=== PATIENT | female | born 1980 | race Caucasian/White ===

== ENCOUNTER 2024-03-27 15:15 | Outpatient (REF) | payer MEDICARE, MEDICAID, SELFPAY ==
[2024-03-27 15:58] LABS: MANUAL DIFF FLAG NO
[2024-03-27 16:13] LABS: Basophils Percent Auto 0.6 % (0-2); Eosinophils Absolute Auto 0.1 X10*3/uL (0.0-0.4); Eosinophils Percent Auto 1.9 % (0-4); Hematocrit 33.6 % (37.0-47.0); Hemoglobin 10.6 g/dl (12.0-16.0); Imm Gran Abs Auto 0.02 X10*3/uL (0.00-0.03); Imm Gran Pct Auto 0.3 % (0.0-0.4); Lymphocytes Absolute Auto 1.8 X10*3/uL (1.2-4.9); Lymphocytes Percent Auto 25.2 % (20-40); Mean Corpuscular HGB Conc 31.5 g/dl (31.0-35.0); Mean Corpuscular Hemoglobin 25.1 pg (27.0-33.0); Mean Corpuscular Volume 79.6 fL (80.0-98.0); Mean Platelet Volume 11.2 fL (9.4-12.3); Monocytes Absolute Auto 0.4 X10*3/uL (0.1-1.2); Monocytes Percent Auto 6.3 % (2-11); Neutrophils Absolute Auto 4.6 x10*3/uL (2.0-8.3); Neutrophils Percent Auto 65.7 % (45-73); Platelet Count 245 X10*3/uL (160-400); Red Blood Count 4.22 X10*6/uL (4.20-5.50)
[2024-03-27 16:46] LABS: Alanine Aminotransferase 17 U/L (0-31); Albumin Level 3.9 g/dL (3.5-5.0); Alkaline Phosphatase 58 U/L (39-117); Anion Gap 11 (12-20); Aspartate Amino Transferase 18 U/L (5-31); Bilirubin Total 0.2 mg/dL (0.0-1.0); Blood Urea Nitrogen 11 mg/dL (9-16); Calcium 9.5 mg/dL (8.4-10.2); Carbon Dioxide 22 mmol/L (22-29); Chloride 110 mmol/L (96-108); Estimated Glomerular Filt Rate > 60; Glucose Random 83 mg/dL (60-115); Potassium 4.4 mmol/L (3.3-5.1); Sodium 139 mmol/L (135-145); Total Protein 7.1 g/dL (6.5-8.0)
[2024-03-27 16:55] LABS: Ferritin 9 ng/mL (10-250); TSH reflex Free T4 0.99 uIU/mL (0.32-4.0)
[2024-03-30 05:09] LABS: TS Negative Control Passed; TS Panel A 1; TS Panel B 0; TS Positive Control Passed; TSpotTB Negative (Negative)
== END 2024-03-27 15:16 | disposition home or self-care (01) ==
LOC: HO.HHCL 15:15
PROVIDERS: Visit Provider Internal Medicine
DX: N93.8 Other specified abnormal uterine and vaginal bleeding (principal); R63.4 Abnormal weight loss; E46 Unspecified protein-calorie malnutrition; R56.9 Unspecified convulsions
CPT/HCPCS: 36415; 80053; 82728; 84134; 84443; 85025; 86481

== ENCOUNTER 2024-12-29 09:12 | Outpatient (REF) | payer OTHER, SELFPAY ==
--- OUTSIDE RECORDS SUMMARY | 2024-12-29 09:27 | XMS_ITS | Clinical Summary ---
Author Organization [employer] Address [address] [facility] [address] [place] [address] Care Team Providers Care Coning Machine Operator Name Role Phone Ewelina Goldsmith MD Primary Care Provider + Allergies Active Allergy Reactions Criticality Noted Date Comments Ketamine Anaphylaxis High 07/15/2017 Trazodone 03/01/2019 Medications busPIRone (Buspar) 10 MG tablet Take 10 mg by mouth 2 times daily. 023 Active mirtazapine (Remeron) 7.5 MG tablet Take 7.5 mg by mouth at bedtime. 023 Active ramelteon (Rozerem) 8 MG tablet Take 8 mg by mouth at bedtime. 023 Active tiZANidine (Zanaflex) 2 MG tablet TAKE 1 TABLET BY MOUTH EVERY MORNING AND 2 TABLETS BY MOUTH EVERY NIGHT AT BEDTIME 023 Active liver oil-zinc oxide (Desitin) 40 % ointment Apply topically if needed for irritation. 56 g 024 Active Blood Pressure Monitor kit Use as directed 3x/week 1 kit 024 Active clotrimazole (Clotrimazole Anti-Fungal) 1 % cream APPLY TOPICALLY AFTER EACH DIAPER CHANGE and COVER WITH ZINC OINT. FOR 10 TO 14 DAYS DIRECTED 90 g 1 024 Active Blood Pressure Monitoring (Omron 3 Series BP Monitor) device USE DIRECTED 3 TIMES A WEEK 024 Active sodium phosphate (Fleets) 7-19 GM/118ML enema enemaIndication s:Slow transit constipation USE 1 ENEMA RECTALLY 2 TO 3 TIMES PER WEEK NEEDED FOR CONSTIPATION 15 each 024 Active ibuprofen 100 MG/5ML suspension TAKE 20 ML BY MOUTH EVERY 6 HOURS NEEDED FOR PAIN 024 Active clonazePAM (KlonoPIN) 2 MG tablet TAKE 1/2 TABLET BY MOUTH TWICE DAILY AND 1/2 TABLET ONCE DAILY NEEDED 024 Active Slow Release Iron 45 MG tablet controlled-rele ase TAKE 1 TABLET BY MOUTH EVERY DAY 90 tablet 025 Active sertraline (Zoloft) 25 MG tablet TAKE 1 TABLET BY MOUTH DAILY FOR 2 WEEKS, THEN INCREASE TO 2 TABLETS DAILY 60 tablet 1 025 Active Eliquis 5 MG tabletIndicatio ns: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 (CMS/HCC) TAKE 1 TABLET BY MOUTH TWICE DAILY 180 tablet 3 025 Active omeprazole (PriLOSEC) [address] capsuleIndicati ons:Gastroesoph ageal reflux disease, unspecified whether esophagitis present TAKE 1 CAPSULE BY MOUTH EVERY DAY 90 capsule 3 025 Active lactulose (Chronulac) 10 GM/15ML solutionIndicat ions:Slow transit constipation TAKE 15 ML BY MOUTH THREE TIMES DAILYTAKE 15 ML BY MOUTH THREE TIMES DAILY 1350 mL 3 025 Active lactulose (Chronulac) 10 GM/15ML solutionIndicat ions:Slow transit constipation TAKE 15 ML BY MOUTH THREE TIMES DAILY 1350 mL 3 024 2024 Discontinued(R eorder (will not trigger notification to Pharmacy)) Active Problems Problem Noted Date Diagnosed Date Protein-calorie malnutrition, unspecified severi ty 03/27/2024 Assessment & Plan (03/27/2024 4:23 PM EST): See weight loss, Check LFTs, albumin and pre albumin levels Underweight 03/27/2024 Assessment & Plan (03/27/2024 4:23 PM EST): Lost 10-12 lb over this past year, not eating well, can only eat small amounts of meals before she vomits. Refer to GI for evaluation of dysphagia Requires daily assistance fo r activities of daily living (ADL) and comfort needs 03/27/2024 Assessment & Plan (03/27/2024 4:27 PM EST): Needs 24h care, wheelchair bound Continue with ADH program + Parents are caregivers. Has a VNA going to home few times per week. T-spot check today. Had Influenza IZ today, other adult Izs are up to date. Cerebral palsy 03/08/2024 History of DVT (deep vein thrombosis) 03/08/2024 Seizure 03/08/2024 Assessment & Plan (03/27/2024 3:07 PM EST): No tonic clonic seizures in more than 2y, discharge from [facility] neurology on no meds. 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 As she currently has leg edema, I will order a DVT US as above, to ro recurrent DVT LLE. If US is NEG for DVT, she can be cleared for procedure. Most of her other medical conditions are stable enough so that she can safely undergo planned procedure if Duplex DVT US is Negative for DVT. -Call back IRLANDA should he develops fever, cough, SOB, CP, UTI sxs or any other acute issue -Fu preop instructions after DVT US results. Acute deep vein thrombosis ( DVT) of distal end of left lower extremity 04/22/2023 Overview (04/22/2023): 04/05/23 at [facility], Left calf, popliteal and femoral vein (not common femoral). Assessment & Plan (09/29/2023 9:31 AM EDT): - see above Assessment & Plan (04/22/2023 12:00 PM EST): Doing well on Eliquis. Complete at least 3 month and fu w/ hematology Avoid massaging lower extremities Counseled to move pt in different positions and sitting her on a recliner or other seats (pt is wheelchair bound) Preventative health care 03/22/2023 Assessment & Plan (03/24/2023 10:12 AM EST): Discussed with family re increase fresh fruit and vegetable intake. Patient is reportedly safe at home per caregiver. Eye exam -Will refer to ophtamology Lipids/FBS -Up to date, next one is in 2023 Vaccinations -Influenza immunization today and counseled to have covid booster and zoster #2 at an earliest conveience at a local pharmacy Dental visit -overdue, counseled patient family with a schedule appointment in the next few months Elevated blood pressure, situational 03/22/2023 Assessment & Plan (09/29/2023 10:13 AM EDT): - probably related to increased anxiety/ white coat HTN - family will continue to check BP at home 3x per week and will call back if it is repeatedly above 160/90 - continue on anxiety medications and she does need any BP medication at this time Assessment & Plan (03/23/2023 7:39 PM EST): Repeated blood presusre BP is 137/77 BP increases with patient anxiety reconsult PRN Urinary incontinence without sensory awareness 0 11/05/2022 Full incontinence of feces 11/05/2022 Vitamin D deficiency 09/23/2022 Assessment & Plan (09/23/2022 10:14 AM EDT): DC vit d capsules weekly and switch to vitamin d capsules 2000 daily DUB (dysfunctional uterine bleeding) 06/16/2022 Assessment & Plan (03/27/2024 3:09 PM EST): Controlled with Ibuprofen Check CBC and iron studies Continue pOC Assessment & Plan (09/29/2023 10:33 AM EDT): - reassurance, seems to be physiological menstrual bleeding - pt will take Tylenol AC menstrual bleeding for the first two days and PRN pain, avoid Ibuprofen due to also taking Eliquis. Will give Ibuprofen only for severe pain - pt is not anemic and is recommended to indulge in iron rich meals such as spinach, grains, raisins, and OJ Assessment & Plan (09/23/2022 10:15 AM EDT): Resolved. UA pending, no need for vaginal swab at this time. Reconsult PRN Assessment & Plan (06/16/2022 10:09 AM EST): r/o infection we will schedule an appointment with a nurse to get urine sample with a urine plate maker and vaginal swab. FU results, otherwise in 3 months. Weight loss 06/15/2022 Assessment & Plan (03/27/2024 3:10 PM EST): It could've been exacerbated by recent URI, dysphagia? Refer to GI, consider nutritional supplement after evaluation. Assessment & Plan (06/16/2022 10:07 AM EST): Resolved. Patient progressively getting back to baseline weight. Tachycardia 06/15/2022 Other insomnia 06/15/2022 Dysphagia 06/15/2022 Assessment & Plan (03/27/2024 3:08 PM EST): It could be exacerbated by recent URI, it could also be progressive from Neurological disorder Refer to GI, may need UGIS at least, they have been unable to do it due to non cooperation.. Rash 10/27/2017 Assessment & Plan (09/29/2023 9:06 AM EDT): - eczema is resolved, pt to use OTC hydrocortisone or betamethasone cream PRN - pt requests betamethasone cream to be discontinued from med list Assessment & Plan (09/23/2022 10:14 AM EDT): Seems to have eczema Use OTC hydrocortisone cream along with regular moisturizer cream if no improvement, use betamethasone cream for no longer than 2 weeks. 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 Continue fu care as usual, parents are caregivers. Slow transit constipation 03/26/2017 Assessment & Plan (03/22/2023 3:59 PM EST): Due to decreased mobility Conitnue lactulose daily + fleet enema PRN Anxiety attack 03/26/2017 Deep vein thrombosis (DVT) o f popliteal vein of left lower extremity 03/26/2017 Assessment & Plan (12/23/2023 3:26 PM EDT): Recurrent. She'll be on Eliquis lifelong Given recurrent leg edema, I will order DVT US of E to ro a new DVT, prior to dental prcedure. If US is neg, she can be off eliquis 2d prior to procedure and restart 3d after/max 5d after procedure. Assessment & Plan (09/30/2023 9:08 AM EDT): - negative hypercoagulability workup, pt is wheel chair bound which increases risk of DVT - seen by [facility] hematology - continue Eliquis 5 mg BID lifelong - dicussed with family regarding increased bleeding, pt should go to ED if pt develops any type of uncontrollable bleeding Assessment & Plan (04/22/2023 11:59 AM EST): Previous on was at the time pt was bed bound due to severe illness, this one seems to be continuous Fu with hematology to decide alf POC Resolved Problems Problem Noted Date Diagnosed Date Resolved Date H/O: encephalitis 03/08/2024 03/27/2024 Candidiasis of perineum 08/12/202303/17 Assessment & Plan (09/29/2023 10:34 AM EDT): - resolving, seems to be doing well on Clotrimazole and zinc oxide - no evidence of DM, recommended constant change of position Assessment & Plan (08/12/2023 11:54 AM EDT): Use clotrimazole cream BID + zinc oxide paste Keep area clean and dry (use non alcohol wipes) Change positions to prevent pressure ulcers Reconsult PRN Sx of diarrhea, UTI, or worsening rash Hold on silicone and calamine cream at this time Folliculitis 09/22/2022 03/27/2024 Encounters Date Type Department Care Team Description 12/19/2024 Refill [facility] [address] [place] [address] Ewelina Goldsmith MD Slow transit constipation 11/22/2024 Refill [facility] [address] [place] [address] Ewelina Goldsmith MD Gastroesophageal reflux disease, unspecified whether esophagitis present from Last 3 Months Immunizations Immunization Administration Dates Next Due Hep B, adult 02/02/2022 Influenza injectable quadriv alent IIV4 with preservative 06/22/2017 Influenza injectable quadriv alent preservative free 03/22/2023,03/18/2022,02/20/2021,2019,02/20/2019,06/03/2018 Influenza, seasonal, injecta ble, preservative free 03/27/2024 MMR 02/02/2022 Moderna Covid-19 Vaccine 12+ 06/20/2020 Tdap 08/15/2018 Varicella 02/02/2022 Social History Tobacco Use Types Packs/Day Years Used Date Smoking Tobacco: Never Smokeless Tobacco: Never Tobacco Cessation:Counseling Given: Not Answered Alcohol Use Standard Drinks/Week Comments Never 0 (1 standard drink = 0.6 oz pur e alcohol) Alcohol Answer Date Recorded Frequency of Alcohol Consumption Not on file 03/27/2024 Average Number of Drinks Not on file 024 Frequency of Binge Drinking Not on file 03/17 Score 0 03/27/2024 Housing Stability Answer Date Recorded What is your housing situation today? I have adeel shaniqua 03/27/[address] you li ve. Do you have problems with any of the following? None of the above 03/27/2024 Food Insecurity Answer Date Recorded Within the past 12 months, y ou worried that your food would run out before you got money to buy more: Never True 03/27/2024 Within the past 12 months,th e food you bought just didn't last and you didn't have enough money to get more: Never True 03/2024 Transportation Answer Date Recorded In the past 12 months, has l ack of transportation kept you from medical appts, meetings, work or from getting things needed for daily living? No 03/27/2024 Utilities Answer Date Recorded In the past 12 months, has t he electric, gas, oil or water company threatened to shut off services in your home? I am not sure 03/27/2024 Internet Access Answer Date Recorded Internet Access Q1 I am not sure 03/27/2024 Internet Access Q2 Not on file 03/27/2024 Comments Unknown Sex and Gender Information Value Date Recorded Sex Assigned at Female 03/16/2022 10:32 AM EDT Legal Sex Female 10:32 AM EDT Gender Identity Female 03/16/2022 10:32 AM EDT Sexual Orientation Straight 03/16/2022 10 :32 AM EDT Last Filed Vital Signs Vital Sign Reading Time Taken Comments Blood Pressure 134/80 03/27/2024 2:30 PM EST Pulse 86 03/27/2024 2:30 PM EST Temperature 36.2 C (97.2 F) 03/27/2024 2:30 PM EST Respiratory Rate 22 03/08/2024 10:33 AM EDT Oxygen Saturation 95% 03/27/2024 2:30 PM EST Inhaled Oxygen Concentration - - Weight 39 kg (86 lb) 03/27/2024 2:30 PM EST Height 149.9 cm (4' 11 ) 03/27/2024 2:30 PM EST Body Mass Index 17.37 03/27/2024 2:30 PM EST Plan of Treatment Health Maintenance Due Date Last Done Comments Depression Screening 1982 HIV Screening 1982 Disability Screening 1982 Family Planning (PISQ) 1997 HPV Vaccines (1 - 3-dose series) 1997 Pap Smear 10/25/2003 Cervical Cancer Screening 2012 HPV/Cotest 2012 Hepatitis B Vaccines (2 of 3 - 19+ 3-dose series) 03/02/2022 02/02/2022 Mammogram 2022 COVID-19 Vaccine ( season) 2024 03/18/2022, 04/03/2021, 07/18/2020, Additional history exists Influenza Vaccine (#1) 2025 , 03/22/2023, 03/18/2022, Additional history exists Alcohol/Substance Use Screening 03/27/2025 03/27/2024 SDOH Screening 03/27/2025 03/27/2024 Tobacco Screening 03/27/2025 03/27/2024 Lipid Panel 02/20/2026 02/20/2021 DTaP/Tdap/Td Vaccines (2 - Td or Tdap) 08/15/2028 08/15/2018 Zoster Vaccines (1 of 2) 2032 RSV Patients and Patients Aged 60 years or older (1 - 1-dose 75+ series) 2057 Hepatitis C Screening Completed 09/23/2022, 022 HIB Vaccines Aged Out No longer eligi ble based on patient's age to complete this topic Hepatitis A Vaccines Aged Out No long er eligible based on patient's age to complete this topic IPV Vaccines Aged Out No longer eligi ble based on patient's age to complete this topic Meningococcal B Vaccine Aged Out No l onger eligible based on patient's age to complete this topic Meningococcal Vaccine Aged Out No gustavo alan eligible based on patient's age to complete this topic Pneumococcal Vaccine: Pediatrics (0 to 5 Years) and At-Risk Patients (6 to 49) Years Aged Out No longer eligible based on patient's age to complete this topic RSV under 20 months Aged Out No longe r eligible based on patient's age to complete this topic Rotavirus Vaccines Aged Out No longer eligible based on patient's age to complete this topic Procedures Procedure Name Priority Date/Time Associated Diagnosis Comments HEPATITIS C ANTIBODY (EXTERNAL RESULTS ONLY) Routine 09/23/2022 2:56 PM EDT LIPID PANEL, STANDARD Routine 02/20/2021 11:12 AM EDT from Last 3 Months or Most Recently Relevant to Health Maintenance Results * Hepatitis C Antibody (09/23/2022 2:56 PM EDT) Hepatitis C Antibody Nonreactive Blood 09/23/2022 2:56 PM EDT us Ewelina Goldsmith MD POINT OF CARE TEST ENTER /EDIT ORDERABLES Final Result * (ABNORMAL) LIPID PANEL, STANDARD (02/20/2021 11:12 AM EDT) Chol/HDLC Ratio 3.4 <5.0 (calc) [facility] Cholesterol, Total 149 <200 mg/dL [facility] HDL Cholesterol 44(L) > OR = 50 mg/dL [facility] LDL Cholesterol 92 mg/dL (calc) [facility] Comment: Reference range: <100 Desirable range <100 mg/dL for primary prevention; <70 mg/dL for patients with CHD or diabetic patients with > or = 2 CHD risk factors. LDL-C is now calculated using the Baljinder-Yoan calculation, which is a validated novel method providing better accuracy than the Friedewald equation in the estimation of LDL-C. Baljinder SS et al. CORBY. 2013;310(19): 2179-4288 (http://education.3scale.com/faq/ZVM764) Non-HDL Cholesterol 105 <130 mg/dL (calc) [facility] Comment: For patients with diabetes plus 1 major ASCVD risk factor, treating to a non-HDL-C goal of <100 mg/dL (LDL-C of <70 mg/dL) is considered a therapeutic option. Triglycerides 51 <150 mg/dL [facility] 02/20/2021 11:1 2 AM EDT us Ewelina Goldsmith MD LAB BLOOD ORDERABLES Fin al Result [facility] [address] from Last 3 Months or Most Recently Relevant to Health Maintenance Insurance [employer] < [address] [id number] Care Teams Coning Machine Operator Relationship Specialty Start Date End Date Ewelina Goldsmith MD [address] [place] [id number] PCP - General Family Medicine 03/10/17
[2024-12-29 11:12] LABS: MANUAL DIFF FLAG NO
[2024-12-29 11:22] LABS: Hematocrit 35.0 % (37.0-47.0); Hemoglobin 11.0 g/dl (12.0-16.0); Imm Gran Abs Auto 0.02 X10*3/uL (0.00-0.03); Imm Gran Pct Auto 0.2 % (0.0-0.4); Lymphocytes Absolute Auto 1.5 X10*3/uL (1.2-4.9); Mean Corpuscular HGB Conc 31.4 g/dl (31.0-35.0); Mean Corpuscular Hemoglobin 25.0 pg (27.0-33.0); Mean Corpuscular Volume 79.5 fL (80.0-98.0); NRBC Abs Auto 0.000 X10*3/uL (0.0-0.012); NRBC Pct Auto 0.0 /100WBC (0.0-0.2); Platelet Count 252 X10*3/uL (160-400); Red Blood Count 4.40 X10*6/uL (4.20-5.50); White Blood Count 8.8 X10*3/uL (4.8-10.8)
[2024-12-29 11:32] LABS: Hemoglobin A1C 97.3887 umol/L; Total Hemoglobin (HGBA1C) 2956.6046 umol/L
[2024-12-29 11:37] LABS: Alanine Aminotransferase 9 U/L (0-31); Albumin Level 4.0 g/dL (3.5-5.0); Alkaline Phosphatase 57 U/L (39-117); Anion Gap 10 (12-20); Aspartate Amino Transferase 22 U/L (5-31); Blood Urea Nitrogen 12 mg/dL (9-16); Calcium 8.6 mg/dL (8.4-10.2); Carbon Dioxide 24 mmol/L (22-29); Chloride 105 mmol/L (96-108); Cholesterol 141 mg/dL (<200); Estimated Glomerular Filt Rate > 60; HDL Cholesterol 48 mg/dL (>40); Potassium 4.1 mmol/L (3.3-5.1); Sodium 135 mmol/L (135-145); Total Protein 7.0 g/dL (6.5-8.0); Triglycerides 61 mg/dL (<150)
[2024-12-29 11:56] LABS: Vitamin B12 347 pg/mL (200-900)
== END 2024-12-29 09:13 | disposition home or self-care (01) ==
LOC: HO.HHCL 09:12
PROVIDERS: PCP Internal Medicine; Visit Provider Nurse Practitioner Family
DX: Z79.899 Other long term (current) drug therapy (principal)
CPT/HCPCS: 36415; 80053; 80061; 80164; 82306; 82607; 83036; 83520; 84146; 84436; 85025

== ENCOUNTER 2025-01-04 11:12 | Outpatient (REF) | payer OTHER, SELFPAY ==
--- NOTE | ~2025-01-04 | XR_ITS ---
Examination: Two-view left hand INDICATION: Contractions Prior: None FINDINGS: Joint spaces are preserved. There are no erosions or osteophytes. There is flexion and ulnar deviation of the wrist. There is hyperextension at the PIP joints and IP joint of the thumb XR/XR Hand Jigar 2V IMPRESSION: No bony abnormality. Abnormal positioning, as described above.. Electronically signed by: Ponce Aguirre MD 01/04/2025 12:31 PM EDT
--- OUTSIDE RECORDS SUMMARY | 2025-01-04 12:54 | XMS_ITS | Encounter Summary ---
Author Organization [employer] Address [address] [facility] [address] [place] [address] Care Team Providers Care Manager Competitive Intelligence Name Role Phone Ewelina Goldsmith MD Primary Care Provider + Encounter Details Date Type Department Care Team (Latest Contact Info) Description 01/04/2025 Travel Social History Tobacco Use Types Packs/Day Years Used Date Smoking Tobacco: Never Smokeless Tobacco: Never Alcohol Use Standard Drinks/Week Comments Never 0 (1 standard drink = 0.6 oz pur e alcohol) Depression Answer Date Recorded Patient Health Questionnaire-9 Score 0 01/04/2025 Patient Health Questionnaire-9 Score 0 01/04/2025 Last PHQ-9: Questionnaire Data Not on file 0 01/04/2025 Housing Stability Answer Date Recorded What is your housing situation today? I have adeel mcgovern 03/27/[address] you li [...] your home? I am not sure 03/27/2024 Depression Answer Date Recorded Patient Health Questionnaire-2 Score 0 01/04/2025 Internet Access Answer Date Recorded Internet Access Q1 I am not sure 03/27/2024 Internet Access Q2 Not on file 03/27/2024 Comments Unknown Sex and Gender Information Value Date Recorded Sex Assigned at Female 03/16/2022 10:32 AM EDT Legal Sex Female 10:32 AM EDT Gender Identity Female 03/16/2022 10:32 AM EDT Sexual Orientation Straight 03/16/2022 10 :32 AM EDT documented as of this encounter Functional Status * Over the past 2 weeks, how often have you been bothered by any of the following problems? Question Answer Date of Assessment Author Patient Health Questionnaire-2 Score 0 01/04/2025 10:26 AM EDT Tiffany Andres MA * Little interest or pleasure in doing things Answer Date of Assessment Author Not at all 01/04/2025 10:26 AM EDT Tiffany Mccray MA * Feeling down, depressed, or hopeless Answer Date of Assessment Author Not at all 01/04/2025 10:26 AM EDT Tiffany Mccray MA * Trouble falling or staying asleep, or sleeping too much Answer Date of Assessment Author Not at all 01/04/2025 10:26 AM EDT Tiffany Mccray MA * Feeling tired or having little energy Answer Date of Assessment Author Not at all 01/04/2025 10:26 AM EDT Tiffany Mccray MA * Poor appetite or overeating Answer Date of Assessment Author Not at all 01/04/2025 10:26 AM EDT Tiffany Mccray MA * Feeling bad about yourself - or that you are a failure or have let yourself or your family down Answer Date of Assessment Author Not at all 01/04/2025 10:26 AM EDT Tiffany Mccray MA * Trouble concentrating on things, such as reading the newspaper or watching television Answer Date of Assessment Author Not at all 01/04/2025 10:26 AM EDT Tiffany Mccray MA * Moving or speaking so slowly that other people could have noticed? Or the opposite - being so fidgety or restless that you have been moving around a lot more than usual. Answer Date of Assessment Author Not at all 01/04/2025 10:26 AM EDT Tiffany Mccray MA * Thoughts that you would be better off or hurting yourself in some way Answer Date of Assessment Author Not at all 01/04/2025 10:26 AM EDT Tiffany Mccray MA * Patient Health Questionnaire-9 Score Answer Date of Assessment Author 0 01/04/2025 10:26 AM EDT Tiffany Mccray MA * Over the last 2 weeks, how often have you been bothered by any of the following problems? Question Answer Date of Assessment Author Feeling nervous, anxious, or on edge 0 01/04/2025 10:26 AM EDTiffany Reynolds MA Not being able to stop or control worrying 0 01/04/2025 10:26 AM GAMALIELT Tiffany Rivera MA Worrying too much about different things 0 01/04/2025 10:26 AM Tiffany Us MA Trouble relaxing 0 01/04/2025 10:26 AM Tiffany Us MA Being so restless that it is hard to sit still 0 01/04/2025 10:26 AM Tiffany Us MA Becoming easily annoyed or irritable 0 01/04/2025 10:26 AM GAMALIELT Tiffany Rivera MA Feeling afraid as if something awful might happen 0 01/04/2025 10:26 AM EDT Tiffany Meeks MA PRANAY-7 Total Score 0 01/04/2025 10:26 AM Tiffany Us MA documented as of this encounter Plan of Treatment Not on file documented as of this encounter Visit Diagnoses Not on filedocumented in this encounter Additional Health Concerns Assessment Noted Time PHQ-9 Depression Total Score: 0 01/05/20 10:26 AM EDT documented as of this encounter Care Teams Manager Competitive Intelligence Relationship Specialty Start Date End Date Ewelina Goldsmith MD [address] [place] [id number] PCP - General Family Medicine 03/10/17 documented as of this encounter
--- OUTSIDE RECORDS SUMMARY | 2025-01-04 12:54 | XMS_ITS | Clinical Summary ---
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 Active busPIRone (BUSPAR) 10 mg tablet Take 1 tablet (10 mg total) by mouth 3 (three) times a day. Active cholecalciferol (VITAMIN D-3) 50 mcg (2,000 unit) tablet Take 1 tablet (2,000 Units total) by mouth 1 (one) time each day. Active clonazePAM (KlonoPIN) 2 mg tablet Take 1 tablet (2 mg total) by mouth 2 (two) times a day. Active clotrimazole (LOTRIMIN) 1 % cream Apply topically 2 (two) times a day. Active ferrous sulfate 143 mg (45 mg iron) tablet extended release Take by mouth. Activ e ibuprofen (ADVIL,MOTRIN) 100 mg chewable tablet Chew 1 tablet (100 mg total) every 8 (eight) hours if needed for mild pain. Active lactulose (CEPHULAC) 10 gram packet Take 1 packet (10 g total) by mouth 3 (three) times a day. Active mirtazapine (REMERON) 7.5 mg tablet Take 1 tablet (7.5 mg total) by mouth at bedtime. Active omeprazole (PriLOSEC) [address] capsule Take 1 capsule (20 mg total) by mouth 1 (one) time each day. Do not crush or chew. Active ramelteon (ROZEREM) 8 mg tablet Take 1 tablet (8 mg total) by mouth at bedtime. Active sodium phosphate (FLEET) 9.5-3.5 gram/59 mL enema Insert into the rectum 1 (one) time. Active tiZANidine (ZANAFLEX) 2 mg capsule Take 1 capsule (2 mg total) by mouth 3 (three) times a day. Active liver oil-zinc oxide (DESITIN) ointment Apply topically if needed for irritation. Active Social History Tobacco Use Types Packs/Day Years Used Date Smoking Tobacco: Never Assessed Comments Unknown Sex and Gender Information Value Date Recorded Sex Assigned at Not on file Legal Sex Female 9:02 AM EST Gender Identity Not on file Sexual Orientation Not on file Last Filed Vital Signs Vital Sign Reading Time Taken Comments Blood Pressure 99/80 05/18/2024 9:59 AM EST Pulse - - Temperature - - Respiratory Rate - - Oxygen Saturation - - Inhaled Oxygen Concentration - - Weight 41.7 kg (92 lb) 05/18/2024 9:59 AM EST Height 144.8 cm (4' 9 ) 05/18/2024 9:59 AM EST Body Mass Index 19.91 05/18/2024 9:59 AM EST Plan of Treatment Health Maintenance Due Date Last Done Comments Breast Cancer Screening 1982 Cervical Cancer Screening: Pap Smear 10/25/2003 Hepatitis B Vaccines (2 of 3 - 19+ 3-dose series) 03/02/2022 02/02/2022 COVID-19 Vaccine ( season) 2024 03/18/2022, 04/03/2021, 07/18/2020, Additional history exists HIV Screening 04/04/2024 Hepatitis C Screening 04/04/2024 Social Influencers of Health Screening 04/04/2024 Depression Screening 05/17/2024 Influenza Vaccine (#1) 2025 , 03/22/2023, 03/18/2022, Additional history exists Hypertension/CHF/CAD Annual BMP Blood Test 03/27/2025 03/27/2024 Cholesterol Screening (Lipid Panel) 02/20/2026 02/20/2021 DTaP,Tdap,and Td Vaccines (2 - Td or Tdap) 08/15/2028 08/15/2018 MMR Vaccines Aged Out 02/02/2022 No longer eligi ble based on patient's age to complete this topic Varicella Vaccines Aged Out 02/02/2022 No longer eligible based on patient's age to complete this topic HIB Vaccines Aged Out No longer eligi ble based on patient's age to complete this topic HPV Vaccines Aged Out No longer eligi ble based on patient's age to complete this topic Hepatitis A Vaccines Aged Out No long er eligible based on patient's age to complete this topic IPV Vaccines Aged Out No longer eligi ble based on patient's age to complete this topic Meningococcal ACWY Vaccine Aged Out N o longer eligible based on patient's age to complete this topic Meningococcal B Vaccine Aged Out No l onger eligible based on patient's age to complete this topic Pneumococcal Vaccine: Pediatrics (0 to 5 Years) and At-Risk Patients (6 to 49 Years) Aged Out No longer eligible based on patient's age to complete this topic RSV Immunization Patients Under 20 months Aged Out No longer eligible based on patient's age to complete this topic [place] [address] [address] [place] [address] Member Subscriber Plan / Payer (Ef fective 2018-Present) Name:Shalonda Ruffin Relation to Subscriber:Self Name:Shalonda Ruffin Payer ID:[id number] Group ID:[id number] Type:Not on file Address: [place] [address] [address] [place] [id number] Care Teams Agricultural Real Estate Agent Relationship Specialty Start Date End Date Ewelina Goldsmith MD [address] [place] [phone] PCP - General Internal Medicine 04/04/24
[2025-01-04 13:11] LABS: MANUAL DIFF FLAG NO
[2025-01-04 13:23] LABS: Hematocrit 34.4 % (37.0-47.0); Hemoglobin 10.7 g/dl (12.0-16.0); Imm Gran Abs Auto 0.02 X10*3/uL (0.00-0.03); Imm Gran Pct Auto 0.3 % (0.0-0.4); Lymphocytes Absolute Auto 1.7 X10*3/uL (1.2-4.9); Mean Corpuscular HGB Conc 31.1 g/dl (31.0-35.0); Mean Corpuscular Hemoglobin 25.0 pg (27.0-33.0); Mean Corpuscular Volume 80.4 fL (80.0-98.0); NRBC Abs Auto 0.000 X10*3/uL (0.0-0.012); NRBC Pct Auto 0.0 /100WBC (0.0-0.2); Platelet Count 287 X10*3/uL (160-400); Red Blood Count 4.28 X10*6/uL (4.20-5.50); White Blood Count 7.8 X10*3/uL (4.8-10.8)
[2025-01-04 13:33] LABS: Uric Acid 2.8 mg/dL (2.4-5.7)
[2025-01-04 13:51] LABS: HBS Num1 281.91 mIU/mL (0-7.99); HBc Num1 0.13 S/CO (0.00-0.79); HBsAGNum1 0.43 S/CO (0.00-0.99); HIV Num 1 0.06 S/CO (0.00-0.99); Hepatitis A Antibody IgM 0.27 Index (0-0.79); Hepatitis B Surface Antigen Negative (Negative); Syphilis Screen Nonreactive (Nonreactive); ~HepC Num1 0.11 S/CO (0.00-0.79); ~Hepatitis A Antibody IgM Nonreactive (Nonreactive); ~Hepatitis B Surface Antibody REACTIVE (Nonreactive); ~Hepatitis C Antibody Nonreactive (Nonreactive)
[2025-01-09 22:04] LABS: Anti Nuclear Antibody Pattern Nuclear, Nucleolar; Anti Nuclear Antibody Screen POSITIVE (NEGATIVE); Anti Nuclear Antibody Titer 1:80 titer
== END 2025-01-04 11:13 | disposition home or self-care (01) ==
LOC: HO.HHCL 11:12
PROVIDERS: PCP Internal Medicine; Visit Provider Internal Medicine
DX: Z01.84 Encounter for antibody response examination (principal); M25.541 Pain in joints of right hand; M25.542 Pain in joints of left hand; M21.941 Unspecified acquired deformity of hand, right hand; M24.542 Contracture, left hand; M24.541 Contracture, right hand; M21.942 Unspecified acquired deformity of hand, left hand; R56.9 Unspecified convulsions; Z11.4 Encounter for screening for human immunodeficiency virus [HIV]; Z11.59 Encounter for screening for other viral diseases
CPT/HCPCS: 36415; 73120; 73130; 84550; 85025; 85652; 86038; 86039; 86140; 86431; 86704; 86706; 86709; 86780; 86803; 87340; 87389

== ENCOUNTER → 2025-01-04 11:35 | Outpatient (BNV) | payer OTHER, SELFPAY | PROVIDERS: PCP Internal Medicine; Visit Provider Radiology Diagnostic Radiology | DX: M25.541 Pain in joints of right hand (principal); M25.542 Pain in joints of left hand | CPT/HCPCS: 73120 ==